=== PATIENT | male | born 1945 | race African-American/Black ===

== ENCOUNTER → 2020-10-25 | Outpatient (CLI) | payer OTHER ==
[~2020-10-25] MED LIST: HYZAAR 50/12.51 TAB; METFORMIN HCL500 MG
== END | disposition home or self-care (01) ==
LOC: NUCLEAR 07:28
PROVIDERS: ATTEND Internal Medicine Cardiovascular Disease
DX: I25.9 Chronic ischemic heart disease, unspecified (principal); I50.1 Left ventricular failure, unspecified
CPT/HCPCS: 78452; 93017; A9500; J0153

== ENCOUNTER 2021-06-07 12:09 | Emergency (ER) | payer OTHER ==
[~2021-06-07] VITALS: Ht 170.2 cm; Wt 81.6 kg
[2021-06-07] MEDS ORDERED: MECLIZINE HCL25 MG PO (16:48)
== END 2021-06-07 17:18 ==
LOC: ER 12:09 → CPU-OBS 15:17 → ER 17:18
DX: R42 Dizziness and giddiness (principal); Z20.822 Contact with and (suspected) exposure to COVID-19

== ENCOUNTER 2021-09-10 16:34 | Emergency (ER) | payer OTHER ==
[~2021-09-10] VITALS: Ht 170.2 cm; Wt 84.4 kg
[~2021-09-10 16:34] MED LIST changes: +MECLIZINE HCL25 MG PO
== END 2021-09-10 19:44 | disposition home or self-care (01) ==
LOC: ER 16:34
DX: R42 Dizziness and giddiness (principal); I10 Essential (primary) hypertension

== ENCOUNTER 2023-06-13 12:09 | Emergency (ER) | payer OTHER ==
[~2023-06-13] VITALS: Ht 170.2 cm; Wt 84.8 kg
[2023-06-13] MEDS ORDERED: ATORVASTATIN CA40 MG PO (12:28)
== END 2023-06-13 16:14 | disposition home or self-care (01) ==
LOC: ER 12:10
DX: R09.81 Nasal congestion (principal); B37.84 Candidal otitis externa

== ENCOUNTER 2024-04-11 13:06 | Inpatient (IN) | payer OTHER ==
[~2024-04-11] VITALS: Ht 170.2 cm; Wt 89.4 kg
[~2024-04-11 13:06] MED LIST changes: +ATORVASTATIN CA40 MG PO
[2024-04-11] MEDS ORDERED: NITROGLYCERIN 0.4 MG TAB.SUBL SL STA (15:26)
[2024-04-11] MEDS ORDERED: 0.9 % SODIUM CHLORIDE 1,000 ML IV STA (15:28)
[2024-04-11 15:41] LABS: HEMATOCRIT 43.1 % (39.0-48.0); HEMOGLOBIN 14.3 g/dL (13-16.00); MEAN CELL VOLUME 82.3 fL (80.0-100.00); MEAN CORPUSCULAR HEMOGLOBIN 27.4 pg (27.00-32.0); MEAN CORPUSCULAR HGB CONC 33.2 g/dl (32.0-36.0); PLATELET COUNT 230 K/uL (150-450); RED BLOOD COUNT 5.23 M/uL (4.00-6.00); RED CELL DISTRIBUTION WIDTH 13.8 % (11.5-14.5)
[2024-04-11 16:13] LABS: ALKALINE PHOSPHATASE 60 U/L (50-136); ALT/SGPT 26 U/L (12-78); ANION GAP 6 (10.0-20.0); AST/SGOT 17 U/L (15-37); BILIRUBIN TOTAL 0.42 mg/dL (0.3-1.2); BILIRUBIN,CONJUGATED < 0.10 mg/dL (0.0-0.2); BILIRUBIN,UNCONJUGATED 0.32 mg/dL (0.0-0.6); BLOOD UREA NITROGEN 20 mg/dL (7-18); BUN CREA RATIO 20 (7.0-25.0); CALCIUM 9.5 mg/dL (8.5-10.1); CARBON DIOXIDE 32 mEq/L (21-32); CHLORIDE 106 mmol/L (98-107); CREATININE SERUM 1.01 mg/dL (0.70-1.30); GFR 71.63; GLUCOSE FASTING 71 mg/dL (65-100); OSMOLALITY SERUM 280 MOSM/KG (275-295); POTASSIUM 4.32 mEq/L (3.5-5.1); SODIUM 140 mmol/L (136-145); TOTAL PROTEIN 7.9 gm/dL (6.4-8.2)
[2024-04-11] MEDS ORDERED: NITROGLYCERIN IN 5 % DEXTROSE 50 MG/250 ML BOTTLE IV ONE (16:37)
[2024-04-11 16:42] LABS: URINE APPEARANCE Clear; URINE BILIRRUBIN Negative (NEGATIVE); URINE BLOOD Negative; URINE COLOR Yellow; URINE LEUKOCYTE Negative; URINE NITRATE Negative; URINE PROTEIN Negative (NEGATIVE); URINE UROBILINOGEN 0.2 E.U./dl
[2024-04-11 16:46] LABS: URINE EPITHELIAL CELLS 2.6 uL (0.0-38.8); URINE RBC 3.2 uL (0.0-20.8)
[2024-04-11] MEDS ORDERED: NITROGLYCERIN IN 5 % DEXTROSE 250 ML IV SCH (17:00)
[2024-04-11 17:05] LABS: URINE GLUCOSE 500 MG/DL (NEGATIVE); URINE WBC 1.3 uL (0.0-23.2)
[2024-04-11] MEDS ORDERED: ASPIRIN 325 MG TABLET PO ONE (18:15)
[2024-04-11] MEDS ORDERED: TICAGRELOR 90 MG TABLET PO ONE (18:15)
[2024-04-11] MEDS ORDERED: ATORVASTATIN CALCIUM 40 MG TABLET PO SCH (18:15)
[2024-04-11] MEDS ORDERED: ENOXAPARIN SODIUM 80 MG/0.8 ML SYRINGE SUBCUTANEO SCH (18:18)
[2024-04-11] MEDS ORDERED: INSULIN LISPRO 1,000 UNIT/10 ML UNITS SUBCUTANEO PRN (18:45)
[2024-04-11] MEDS ORDERED: ONDANSETRON HCL 4 MG in 0.9 % SODIUM CHLORIDE 50 ML IV PRN (18:45)
[2024-04-11] MEDS ORDERED: DEXTROSE 50 % IN WATER 0.5 G/ML DISP.SYRIN IV PRN (18:45)
[2024-04-11] MEDS ORDERED: ACETAMINOPHEN 500 MG GEL..CAP PO PRN (18:45)
[2024-04-11] MEDS ORDERED: ENOXAPARIN SODIUM 80 MG/0.8 ML SYRINGE SUBCUTANEO ONE (19:18)
[2024-04-11 20:19] LABS: INR 1.04; PROTHROMBIN TIME 10.9 SECONDS (9.0-11.5)
[2024-04-11 20:21] LABS: PARTIAL THROMBOPLASTIN TIME 26.2 SECONDS (22.0-34.0)
[2024-04-11 21:15] LABS: D DIMER 0.27 MG/L
[2024-04-12] MEDS ORDERED: TICAGRELOR 90 MG TABLET PO SCH (05:00)
[2024-04-12] MEDS ORDERED: LOSARTAN POTASSIUM 25 MG TABLET PO SCH (09:00)
[2024-04-12] MEDS ORDERED: FAMOTIDINE/PF 20 MG in 0.9 % SODIUM CHLORIDE 8 ML IV PUSH SCH (09:00)
[2024-04-12] MEDS ORDERED: ASPIRIN 81 MG TAB.CHEW PO SCH (09:00)
[2024-04-12] MEDS ORDERED: INSULIN LISPRO 1,000 UNIT/10 ML UNITS SUBCUTANEO PRN (10:00)
[2024-04-12] MEDS ORDERED: DEXTROSE 50 % IN WATER 0.5 G/ML DISP.SYRIN IV PRN (10:00)
[2024-04-13] MEDS ORDERED: SODIUM CHLORIDE 0.45 % 1,000 ML IV SCH (09:00)
[2024-04-13] MEDS ORDERED: CHLORHEXIDINE GLUCONATE 120 ML BOTTLE TOP ONE (09:46)
[2024-04-13] MEDS ORDERED: CARVEDILOL 3.125 MG TABLET PO SCH (17:00)
[2024-04-15] MEDS ORDERED: LOSARTAN POTASSIUM 50 MG TABLET PO SCH (09:00)
== END 2024-04-14 12:10 | disposition designated cancer center or children's hospital (05) | DRG 281 ==
LOC: ER 13:06 → ICU-2 19:39 → ICU 19:39 → ICU-2 22:17 → ICU 04-12 12:57
PROVIDERS: General Practice; ADMIT Specialist; ATTEND Specialist
PROC: B246ZZZ Ultrasonography of Right and Left Heart (ICD-10-PCS; principal; 2024-04-11)
PROC: 4A12X4Z Monitoring of Cardiac Electrical Activity, External Approach (ICD-10-PCS; 2024-04-11)
DX: I21.4 Non-ST elevation (NSTEMI) myocardial infarction (principal); I25.810 Atherosclerosis of coronary artery bypass graft(s) without angina pectoris; I24.9 Acute ischemic heart disease, unspecified; E11.65 Type 2 diabetes mellitus with hyperglycemia; Z95.1 Presence of aortocoronary bypass graft; I11.9 Hypertensive heart disease without heart failure; Z79.84 Long term (current) use of oral hypoglycemic drugs